=== PATIENT | male | born 1975 | race Hispanic/Latino ===

== ENCOUNTER 2023-04-01 11:49 | Emergency (ER) | payer BC, OTHER, SELFPAY ==
[2023-04-01 12:42] LABS: #Monocytes 0.8 thou/uL (0.11-0.59); #Neutrophils 5.7 thou/uL (1.40-6.50); %Basophils 0.4 % (0.0-1.0); %Eosinophils 0.5 % (0.0-10.0); %Lymphocytes 9.1 % (21.0-51.0); %Monocytes 11.4 % (0.0-10.0); %Neutrophils 78.1 % (42.0-75.0); Hematocrit 41.4 % (42.0-52.0); Hemoglobin 13.7 g/dL (14.0-18.0); Mean Corpuscular HGB CONC 33.1 g/dL (32.0-36.0); Mean Corpuscular Volume 81.7 fl (78.0-98.0); Mean Platelet Volume 9.5 fL (7.4-10.4); Platelet Count 252 10x3/uL (130-400); RBC Distribution Width 15.7 % (11.5-14.5); Red Blood Cell (RBC) Count 5.07 mill/uL (4.70-6.10); White Blood Cell (WBC) Count 7.4 10x3/uL (4.8-10.8)
[2023-04-01 13:08] LABS: ALT (SGPT) 23 U/L (8-55); AST (SGOT) 24 U/L (5-34); Albumin 4.7 g/dL (3.5-5.0); Alkaline Phosphatase 108 U/L (40-110); Anion Gap 15 mmol/L (10-20); BUN (Urea Nitrogen) 10 mg/dL (8.9-20.6); Bilirubin, Total 0.7 mg/dL (0.2-1.2); Calc. Creatinine Clearance 0 mL/min (70-130); Calcium 9.6 mg/dL (7.8-10.44); Carbon Dioxide 27 mmol/L (22-29); Chloride 96 mmol/L (98-107); Estimated GFR 92; Globulin 3.1 g/dL (2.4-3.5); Glucose 117 mg/dL (70-105); Protein, Total 7.8 g/dL (6.0-8.3); Sodium 135 mmol/L (136-145)
[2023-04-01 13:10] LABS: Lipase 19 U/L (8-78); Magnesium 1.6 mg/dL (1.6-2.6)
[2023-04-01 13:26] LABS: SARS-CoV-2 NAA Rapid Test Not Detected (NotDetected)
[2023-04-01 13:36] LABS: Troponin I Less than 0.010 ng/mL (< 0.028)
== END 2023-04-01 15:00 | disposition home or self-care (01) ==
LOC: ERS 11:49
DX: E87.6 Hypokalemia (principal); J10.1 Influenza due to other identified influenza virus with other respiratory manifestations; F10.20 Alcohol dependence, uncomplicated; I10 Essential (primary) hypertension; F17.220 Nicotine dependence, chewing tobacco, uncomplicated; Z20.822 Contact with and (suspected) exposure to COVID-19; Z79.899 Other long term (current) drug therapy
CPT/HCPCS: 36415; 71045; 80053; 83690; 83735; 84443; 84484; 85025; 86140; 93005

== ENCOUNTER 2024-05-24 10:00 | Outpatient (CLI) | payer OTHER | END 2024-05-24 12:00 | disposition home or self-care (01) | LOC: ULT 10:00 | PROVIDERS: ATTEND Nurse Practitioner Family | DX: R82.90 Unspecified abnormal findings in urine (principal); N28.1 Cyst of kidney, acquired | CPT/HCPCS: 76770 ==

== ENCOUNTER 2025-01-26 18:36 | Inpatient (IN) | payer OTHER ==
[2025-01-26 20:02] LABS: #Basophils 0.03 10x3/uL (0.0-0.2); #Eosinophils 0.14 10x3/uL (0.0-0.7); #Monocytes 0.84 10x3/uL (0.11-0.59); #Neutrophils 5.74 10x3/uL (1.40-6.50); %Basophils 0.4 % (0.0-1.0); %Eosinophils 1.7 % (0.0-10.0); %Lymphocytes 17.3 % (21.0-51.0); %Monocytes 10.3 % (0.0-10.0); %Neutrophils 70.1 % (42.0-75.0); Hematocrit 35.1 % (42.0-52.0); Hemoglobin 12.0 g/dL (14.0-18.0); Mean Corpuscular Hemoglobin 26.5 pg (27.0-31.0); Mean Corpuscular Volume 77.7 fL (78.0-98.0); Platelet Count 251 10x3/uL (130-400); Red Blood Cell (RBC) Count 4.52 mill/uL (4.70-6.10); White Blood Cell (WBC) Count 8.19 10x3/uL (4.8-10.8)
[2025-01-26 20:39] LABS: ALT (SGPT) 21 U/L (Less than 45); AST (SGOT) 40 U/L (11-34); Albumin 4.4 g/dL (3.1-4.5); Alkaline Phosphatase 90 U/L (40-110); Anion Gap 16 mmol/L (10-20); BUN (Urea Nitrogen) 21 mg/dL (8.4-25.7); Bilirubin, Total 0.7 mg/dL (0.3-1.2); Calc. Creatinine Clearance 0 mL/min (70-130); Calcium 9.4 mg/dL (7.8-10.44); Carbon Dioxide 26 mmol/L (22-29); Chloride 83 mmol/L (98-107); Globulin 3.1 g/dL (2.4-3.5); Glucose 103 mg/dL (70-105); Potassium 2.5 mmol/L (3.5-5.1); Sodium 122 mmol/L (136-145)
[2025-01-26 21:16] LABS: Lipase 61 U/L (8-78); Magnesium 1.6 mg/dL (1.6-2.6)
[2025-01-26 21:53] LABS: Acetaminophen Less than 10 mcg/mL (Less than 10); Salicylate Less than 8.0 mg/dL (Less than 8.0)
[2025-01-26] MEDS ORDERED: NS 0.9% w/ 20 MEQ KCL 1,000 ML ONE ×2 (23:17)
[2025-01-27] MEDS ORDERED: Melatonin 3 MG TAB PO PRN (00:06)
[2025-01-27] MEDS ORDERED: Calcium Carbonate 500 MG ChewTAB PO PRN (00:06)
[2025-01-27] MEDS ORDERED: Acetaminophen 325 MG TAB PO PRN (00:06)
[2025-01-27] MEDS ORDERED: Senokot S 8.6-50 MG TAB PO PRN (00:06)
[2025-01-27] MEDS ORDERED: Ondansetron PF 4 MG/2 ML Vial IVP PRN (00:06)
[2025-01-27 01:01] LABS: Magnesium 1.6 mg/dL (1.6-2.6)
[2025-01-27] MEDS ORDERED: hydrALAZINE 20 MG/ML VIAL SLOW IVP PRN (01:27)
[2025-01-27 01:30] VITALS: BMI 28.0
[2025-01-27] MEDS: Magnesium 2 GM/50 ML(in water) 2 GM in Premix 1 BAG IVPB SCH (02:04)
[2025-01-27] MEDS: PHOS-NAK 1 PKT PACK PO SCH (02:08)
[2025-01-27 02:13] LABS: Cardiac Risk 5.4 (Less than 4.5); Cholesterol 257 mg/dl (< 200 Desired); HDL Cholesterol 48 mg/dL (>60 Neg Risk); LDL Cholesterol, Calculated 153 mg/dL; Potassium 3.0 mmol/L (3.5-5.1); Sodium 129 mmol/L (136-145); Triglycerides 279 mg/dL (Less than 150)
[2025-01-27 05:05] LABS: #Basophils 0.03 10x3/uL (0.0-0.2); #Eosinophils 0.18 10x3/uL (0.0-0.7); #Monocytes 0.84 10x3/uL (0.11-0.59); #Neutrophils 4.47 10x3/uL (1.40-6.50); %Basophils 0.4 % (0.0-1.0); %Eosinophils 2.5 % (0.0-10.0); %Lymphocytes 21.8 % (21.0-51.0); %Monocytes 11.8 % (0.0-10.0); %Neutrophils 62.9 % (42.0-75.0); Hematocrit 34.4 % (42.0-52.0); Hemoglobin 11.2 g/dL (14.0-18.0); Mean Corpuscular Hemoglobin 26.1 pg (27.0-31.0); Mean Corpuscular Volume 80.2 fL (78.0-98.0); Platelet Count 245 10x3/uL (130-400); Red Blood Cell (RBC) Count 4.29 mill/uL (4.70-6.10); White Blood Cell (WBC) Count 7.11 10x3/uL (4.8-10.8)
[2025-01-27 05:38] LABS: ALT (SGPT) 25 U/L (Less than 45); AST (SGOT) 44 U/L (11-34); Albumin 3.9 g/dL (3.1-4.5); Alkaline Phosphatase 80 U/L (40-110); Anion Gap 13 mmol/L (10-20); BUN (Urea Nitrogen) 18 mg/dL (8.4-25.7); Bilirubin, Total 0.7 mg/dL (0.3-1.2); Calc. Creatinine Clearance 92 mL/min (70-130); Calcium 9.2 mg/dL (7.8-10.44); Carbon Dioxide 30 mmol/L (22-29); Chloride 91 mmol/L (98-107); Globulin 2.9 g/dL (2.4-3.5); Glucose 99 mg/dL (70-105); Potassium 3.1 mmol/L (3.5-5.1); Sodium 131 mmol/L (136-145)
[2025-01-27 06:36] LABS: Sodium 131 mmol/L (136-145)
[2025-01-27 08:24] LABS: Anion Gap 12 mmol/L (10-20); BUN (Urea Nitrogen) 16 mg/dL (8.4-25.7); Calc. Creatinine Clearance 105 mL/min (70-130); Calcium 8.9 mg/dL (7.8-10.44); Carbon Dioxide 28 mmol/L (22-29); Chloride 93 mmol/L (98-107); Glucose 107 mg/dL (70-105); Potassium 3.2 mmol/L (3.5-5.1); Sodium 130 mmol/L (136-145)
[2025-01-27] MEDS: Famotidine 20 MG TAB PO SCH (08:43)
[2025-01-27] MEDS: Multivit, Therapeutic 1 TAB PO SCH (08:43)
[2025-01-27] MEDS: Enoxaparin 40 MG (0.4 mL) SYRINGE SC SCH (08:43)
[2025-01-27] MEDS: Folic Acid 1 MG TAB PO SCH (08:43)
[2025-01-27] MEDS: Losartan 25 MG TAB PO SCH (08:43)
[2025-01-27 10:03] LABS: Osmolality, Serum 266 mOsm/kg (275-295)
[2025-01-27 10:15] LABS: Osmolality, Urine 157 mOsm/kg (50-1200)
[2025-01-27 10:30] LABS: Sodium 132 mmol/L (136-145)
[2025-01-27 12:43] LABS: Anion Gap 15 mmol/L (10-20); BUN (Urea Nitrogen) 15 mg/dL (8.4-25.7); Calc. Creatinine Clearance 101 mL/min (70-130); Calcium 9.6 mg/dL (7.8-10.44); Carbon Dioxide 29 mmol/L (22-29); Chloride 93 mmol/L (98-107); Glucose 113 mg/dL (70-105); Potassium 3.4 mmol/L (3.5-5.1); Sodium 134 mmol/L (136-145)
[2025-01-27 13:54] LABS: Potassium 3.4 mmol/L (3.5-5.1)
[2025-01-27 18:06] LABS: Anion Gap 13 mmol/L (10-20); BUN (Urea Nitrogen) 18 mg/dL (8.4-25.7); Calc. Creatinine Clearance 69 mL/min (70-130); Calcium 9.5 mg/dL (7.8-10.44); Carbon Dioxide 29 mmol/L (22-29); Chloride 96 mmol/L (98-107); Glucose 106 mg/dL (70-105); Potassium 4.4 mmol/L (3.5-5.1); Sodium 134 mmol/L (136-145)
[2025-01-27 20:04] LABS: Anion Gap 15 mmol/L (10-20); BUN (Urea Nitrogen) 20 mg/dL (8.4-25.7); Calc. Creatinine Clearance 67 mL/min (70-130); Calcium 9.3 mg/dL (7.8-10.44); Carbon Dioxide 27 mmol/L (22-29); Chloride 99 mmol/L (98-107); Glucose 132 mg/dL (70-105); Potassium 3.9 mmol/L (3.5-5.1); Sodium 137 mmol/L (136-145)
[2025-01-27 22:40] LABS: Anion Gap 14 mmol/L (10-20); BUN (Urea Nitrogen) 20 mg/dL (8.4-25.7); Calc. Creatinine Clearance 67 mL/min (70-130); Calcium 8.9 mg/dL (7.8-10.44); Carbon Dioxide 27 mmol/L (22-29); Chloride 102 mmol/L (98-107); Glucose 168 mg/dL (70-105); Potassium 3.7 mmol/L (3.5-5.1); Sodium 139 mmol/L (136-145)
[2025-01-28 06:02] LABS: Anion Gap 12 mmol/L (10-20); BUN (Urea Nitrogen) 17 mg/dL (8.4-25.7); Calc. Creatinine Clearance 88 mL/min (70-130); Calcium 8.9 mg/dL (7.8-10.44); Carbon Dioxide 26 mmol/L (22-29); Chloride 102 mmol/L (98-107); Glucose 111 mg/dL (70-105); Potassium 3.4 mmol/L (3.5-5.1); Sodium 137 mmol/L (136-145)
[2025-01-29 05:23] LABS: Anion Gap 14 mmol/L (10-20); BUN (Urea Nitrogen) 17 mg/dL (8.4-25.7); Calc. Creatinine Clearance 92 mL/min (70-130); Calcium 9.3 mg/dL (7.8-10.44); Carbon Dioxide 25 mmol/L (22-29); Chloride 104 mmol/L (98-107); Glucose 118 mg/dL (70-105); Potassium 3.4 mmol/L (3.5-5.1); Sodium 140 mmol/L (136-145)
[2025-01-29] MEDS: NIFEdipine XL 60 MG ER.TAB PO SCH (08:13)
[2025-01-29 11:58] VITALS: BP 132/78; TEMP 97.6
[2025-01-30] MEDS ORDERED: Thiamine 100 MG TAB PO SCH (06:00)
== END 2025-01-29 13:30 | disposition home or self-care (01) | DRG 641 ==
LOC: ERS 18:36 → 2NO 01-27 00:06
PROVIDERS: ADMIT Internal Medicine; ATTEND Student in an Organized Health Care Education/Training Program
PROC: HZ2ZZZZ Detoxification Services for Substance Abuse Treatment (ICD-10-PCS; principal; 2025-01-27)
DX: E87.1 Hypo-osmolality and hyponatremia (principal); E87.6 Hypokalemia; E78.5 Hyperlipidemia, unspecified; E83.39 Other disorders of phosphorus metabolism; N18.1 Chronic kidney disease, stage 1; Z79.899 Other long term (current) drug therapy; I12.9 Hypertensive chronic kidney disease with stage 1 through stage 4 chronic kidney disease, or unspecified chronic kidney disease; D64.9 Anemia, unspecified; F10.20 Alcohol dependence, uncomplicated
CPT/HCPCS: 36415; 71045; 80048; 80053; 80061; 80307; 83690; 83735; 83880; 83930; 83935; 84100; 84484; 85025; 93005; 96365; 96375; J1650; J3411; J3475; J3480; J7070

== ENCOUNTER 2025-03-02 19:25 | Inpatient (IN) | payer OTHER ==
[2025-03-02 20:31] LABS: #Basophils Less than 0.03 10x3/uL (0.0-0.2); #Eosinophils 0.09 10x3/uL (0.0-0.7); #Monocytes 0.67 10x3/uL (0.11-0.59); #Neutrophils 5.99 10x3/uL (1.40-6.50); %Basophils 0.2 % (0.0-1.0); %Eosinophils 1.1 % (0.0-10.0); %Lymphocytes 17.6 % (21.0-51.0); %Monocytes 8.1 % (0.0-10.0); %Neutrophils 72.8 % (42.0-75.0); Hematocrit 32.5 % (42.0-52.0); Hemoglobin 11.2 g/dL (14.0-18.0); Mean Corpuscular Hemoglobin 26.7 pg (27.0-31.0); Mean Corpuscular Volume 77.6 fL (78.0-98.0); Platelet Count 224 10x3/uL (130-400); Red Blood Cell (RBC) Count 4.19 mill/uL (4.70-6.10); White Blood Cell (WBC) Count 8.24 10x3/uL (4.8-10.8)
[2025-03-02 20:46] LABS: ALT (SGPT) 35 U/L (Less than 45); AST (SGOT) 26 U/L (11-34); Albumin 4.2 g/dL (3.1-4.5); Alkaline Phosphatase 97 U/L (40-110); Anion Gap 14 mmol/L (10-20); BUN (Urea Nitrogen) 14 mg/dL (8.4-25.7); Bilirubin, Total 0.7 mg/dL (0.3-1.2); Calc. Creatinine Clearance 0 mL/min (70-130); Calcium 9.2 mg/dL (7.8-10.44); Carbon Dioxide 28 mmol/L (22-29); Chloride 89 mmol/L (98-107); Globulin 2.6 g/dL (2.4-3.5); Glucose 109 mg/dL (70-105); Potassium 2.7 mmol/L (3.5-5.1); Sodium 128 mmol/L (136-145)
[2025-03-02] MEDS ORDERED: Acetaminophen 500 MG TAB ONE (20:50)
[2025-03-02] MEDS ORDERED: Magnesium 2 GM/50 ML BAG (IN WATER) ONE (21:15)
[2025-03-02 22:57] LABS: Anion Gap 13 mmol/L (10-20); BUN (Urea Nitrogen) 14 mg/dL (8.4-25.7); Calc. Creatinine Clearance 0 mL/min (70-130); Calcium 8.9 mg/dL (7.8-10.44); Carbon Dioxide 28 mmol/L (22-29); Chloride 89 mmol/L (98-107); Glucose 106 mg/dL (70-105); Potassium 2.5 mmol/L (3.5-5.1); Sodium 127 mmol/L (136-145)
[2025-03-02 23:31] LABS: Magnesium 2.3 mg/dL (1.6-2.6)
[2025-03-02] MEDS ORDERED: Calcium Carbonate 500 MG ChewTAB PO PRN (23:51)
[2025-03-02] MEDS ORDERED: Senokot S 8.6-50 MG TAB PO PRN (23:51)
[2025-03-02] MEDS ORDERED: Ondansetron PF 4 MG/2 ML Vial IVP PRN (23:51)
[2025-03-02] MEDS ORDERED: Acetaminophen 325 MG TAB PO PRN (23:53)
[2025-03-02] MEDS ORDERED: Melatonin 3 MG TAB PO PRN (23:53)
[2025-03-03] MEDS ORDERED: hydrALAZINE 20 MG/ML VIAL SLOW IVP PRN (00:01)
[2025-03-03] MEDS: NIFEdipine XL 60 MG ER.TAB PO SCH (01:19)
[2025-03-03] MEDS: Thiamine 100 MG TAB PO SCH ×2 (01:21→20:31)
[2025-03-03] MEDS: Nitroglycerin 2% Ointment 1 INCH/1 GM Packet TOP SCH (01:21)
[2025-03-03] MEDS ORDERED: Electrolyte Replacement Protocol 1 EACH FS SCH (04:30)
[2025-03-03] MEDS ORDERED: PHOS-NAK 1 PKT PACK PO PRN (04:30)
[2025-03-03] MEDS ORDERED: Potassium Chloride 20 MEQ in Premix 1 BAG IVPB PRN (04:30)
[2025-03-03] MEDS ORDERED: Magnesium 2 GM/50 ML(in water) 2 GM in Premix 1 BAG IVPB PRN (04:30)
[2025-03-03 04:41] LABS: #Basophils 0.03 10x3/uL (0.0-0.2); #Eosinophils 0.20 10x3/uL (0.0-0.7); #Monocytes 0.75 10x3/uL (0.11-0.59); #Neutrophils 4.49 10x3/uL (1.40-6.50); %Basophils 0.4 % (0.0-1.0); %Eosinophils 2.9 % (0.0-10.0); %Lymphocytes 21.5 % (21.0-51.0); %Monocytes 10.7 % (0.0-10.0); %Neutrophils 64.2 % (42.0-75.0); Hematocrit 33.1 % (42.0-52.0); Hemoglobin 11.0 g/dL (14.0-18.0); Mean Corpuscular Hemoglobin 26.2 pg (27.0-31.0); Mean Corpuscular Volume 78.8 fL (78.0-98.0); Platelet Count 223 10x3/uL (130-400); Red Blood Cell (RBC) Count 4.20 mill/uL (4.70-6.10); White Blood Cell (WBC) Count 6.99 10x3/uL (4.8-10.8)
[2025-03-03 05:15] LABS: ALT (SGPT) 29 U/L (Less than 45); AST (SGOT) 28 U/L (11-34); Albumin 3.8 g/dL (3.1-4.5); Alkaline Phosphatase 91 U/L (40-110); Anion Gap 11 mmol/L (10-20); BUN (Urea Nitrogen) 11 mg/dL (8.4-25.7); Bilirubin, Total 0.8 mg/dL (0.3-1.2); Calc. Creatinine Clearance 85 mL/min (70-130); Calcium 9.3 mg/dL (7.8-10.44); Carbon Dioxide 27 mmol/L (22-29); Cardiac Risk 4.1 (Less than 4.5); Chloride 97 mmol/L (98-107); Cholesterol 141 mg/dl (< 200 Desired); Globulin 2.8 g/dL (2.4-3.5); Glucose 100 mg/dL (70-105); HDL Cholesterol 34 mg/dL (>60 Neg Risk); LDL Cholesterol, Calculated 84 mg/dL; Potassium 3.1 mmol/L (3.5-5.1); Sodium 132 mmol/L (136-145); Triglycerides 116 mg/dL (Less than 150)
[2025-03-03] MEDS: Multivit, Therapeutic 1 TAB PO SCH (08:42)
[2025-03-03] MEDS: Aspirin 81 mg Enteric Coated Tablet PO SCH (08:42)
[2025-03-03] MEDS: Enoxaparin 40 MG (0.4 mL) SYRINGE SC SCH (08:42)
[2025-03-03] MEDS: Folic Acid 1 MG TAB PO SCH (08:42)
[2025-03-03] MEDS ORDERED: NIFEdipine XL 60 MG ER.TAB PO SCH (09:00)
[2025-03-03 09:56] LABS: Anion Gap 14 mmol/L (10-20); BUN (Urea Nitrogen) 12 mg/dL (8.4-25.7); Calc. Creatinine Clearance 90 mL/min (70-130); Calcium 9.6 mg/dL (7.8-10.44); Carbon Dioxide 25 mmol/L (22-29); Chloride 101 mmol/L (98-107); Glucose 101 mg/dL (70-105); Magnesium 1.8 mg/dL (1.6-2.6); Potassium 3.5 mmol/L (3.5-5.1); Sodium 136 mmol/L (136-145)
[2025-03-03] MEDS: NIFEdipine XL 30 MG ER.TAB PO SCH (15:01)
[2025-03-03 19:30] LABS: Potassium 3.5 mmol/L (3.5-5.1)
[2025-03-04 04:14] VITALS: BMI 26.8
[2025-03-04] MEDS: NIFEdipine XL 30 MG ER.TAB PO SCH (07:24)
[2025-03-04 13:11] VITALS: BP 146/88; TEMP 98.1
== END 2025-03-04 16:53 | disposition home or self-care (01) | DRG 392 ==
LOC: ERS 19:25 → SUATTDRO 19:25 → OBS 23:46 → OBSVTOIN 03-03 13:21
PROVIDERS: ADMIT Internal Medicine; ATTEND Hospitalist
DX: K52.9 Noninfective gastroenteritis and colitis, unspecified (principal); E87.1 Hypo-osmolality and hyponatremia; I10 Essential (primary) hypertension; E78.5 Hyperlipidemia, unspecified; F41.9 Anxiety disorder, unspecified; F17.220 Nicotine dependence, chewing tobacco, uncomplicated; F10.10 Alcohol abuse, uncomplicated; E87.6 Hypokalemia; E87.8 Other disorders of electrolyte and fluid balance, not elsewhere classified; F32.A Depression, unspecified; Z98.890 Other specified postprocedural states
CPT/HCPCS: 36415; 70450; 71045; 80048; 80053; 80061; 80307; 83036; 83735; 83880; 84484; 85025; 93005; 94760; 96365; 96372; G0378; J1650; J3475; J7030